=== PATIENT | male | born 1990 | race African-American/Black ===

== ENCOUNTER 2019-03-10 09:06 | Observation (INO) | payer MEDICAID ==
[~2019-03-10] VITALS: Ht 182.9 cm; Wt 81.0 kg
--- NOTE | 2019-03-10 09:16 | NUR ---
FINGERSTICK GLUCOSE IN TRIAGE READING HIGH.
[2019-03-10] MEDS ORDERED: ONDANSETRON 2MG/ML, 2ML IVPush ONE (10:00)
[2019-03-10] MEDS ORDERED: ONDANSETRON 2MG/ML, 2ML ONE (10:12)
[2019-03-10 10:14] LABS: BASOPHILS % (AUTO) 0 % (0-1); EOSINOPHILS # (AUTO) 0.05 x10^3/uL (0-0.4); EOSINOPHILS % (AUTO) 1 % (1-7); LYMPHOCYTES # (AUTO) 0.84 x10^3/uL (1-3.4); LYMPHOCYTES % (AUTO) 23 % (22-44); MD NO; MEAN CORPUSCULAR HEMOGLOBIN 32.1 pg (27.5-34.5); MEAN CORPUSCULAR HGB CONC 34.2 g/dL (33.2-36.2); MEAN CORPUSCULAR VOLUME 93.7 fL (81-97); MONOCYTES # (AUTO) 0.34 x10^3/uL (0.2-0.8); MONOCYTES % (AUTO) 10 % (2-9); NEUTROPHILS # (AUTO) 2.36 x10^3/uL (1.8-6.8); NEUTROPHILS % (AUTO) 66 % (42-75); PLATELET COUNT 267 x10^3/uL (130-400); RED BLOOD COUNT 4.68 x10^6/uL (4.38-5.82); RED CELL DISTRIBUTION WIDTH 12.5 % (9.4-14.8)
[2019-03-10 10:15] LABS: PH, VENOUS 7.345 pH (7.320-7.420)
[2019-03-10 10:18] LABS: MICROSCOPIC NOT IND
[2019-03-10 10:19] LABS: CULTURE INDICATED? NO
[2019-03-10 10:20] LABS: FIO2 ROOM AIR %
[2019-03-10 10:26] LABS: ALBUMIN 3.6 g/dL (3.4-5.0); ANION GAP 7 mmol/L (5-15); CALCIUM 8.7 mg/dL (8.5-10.1); CHLORIDE 96 mmol/L (98-107)
[2019-03-10 10:29] LABS: ALANINE AMINOTRANSFERASE 67 U/L (12-78); ALKALINE PHOSPHATASE 88 U/L (45-117); BILIRUBIN,TOTAL 0.5 mg/dL (0.2-1.0); CREATININE 1.33 mg/dL (0.7-1.3); TOTAL PROTEIN 7.4 g/dL (6.4-8.2)
[2019-03-10 10:50] LABS: ACETONE, SERUM Trace (10mg/dL) mg/dL (Negative)
[2019-03-10] MEDS ORDERED: INSU100C SQ-INSULIN (10:55)
[2019-03-10] MEDS ORDERED: INSU100V8 SQ (10:55)
[2019-03-10] MEDS ORDERED: SODIUM CHLORIDE 0.9% 1,000ML IVBOLUS ONE (11:00)
--- NOTE | 2019-03-10 11:56 | NUR ---
FLUIDS COMPLETE VSS ON SUPERVISOR BOTTLE MACHINES REPORT NAUSEA COMPLETELY RESOLVED
[2019-03-10] MEDS: INSULIN REGULAR 100 UNITS/ML, 3ML VIAL IVPush ONE ×2 (12:00→12:10)
[2019-03-10] MEDS ORDERED: INSULIN SINGLE DOSE, ER SQ-INSULIN ONE (12:05)
--- NOTE | 2019-03-10 12:10 | NUR ---
ER PROVIDER MADE AWARE OF FSBS-POTATO LOADER ASKED TO SWITCH REGULAR INSULIN 10 UNITS FROM IV PUSH TO SQ HOSPITALIST AT BEDSIDE (JALEN)
--- NOTE | 2019-03-10 12:16 | NUR ---
POST IVF FSBS 399 10 UNITS OF REGULAR INSULIN ADMINISTERED SQ PER PATIENT REQUEST PATIENT PROVIDED WITH 2 DRIVER, 1 STRING CHEESES, & 2 CUPS OF PEANUT BUTTER
[2019-03-10] MEDS ORDERED: DEXTROSE 4 GM TAB.CHEW PO PRN (12:30)
[2019-03-10] MEDS ORDERED: ACETAMINOPHEN 325 MG TABLET PO PRN (12:30)
[2019-03-10] MEDS: HEPARIN 5,000 UNITS/ML, 1ML SQ SCH ×2 (12:30→20:55)
[2019-03-10] MEDS ORDERED: ONDANSETRON 2MG/ML, 2ML IVPush PRN (12:30)
[2019-03-10] MEDS ORDERED: FAMOTIDINE 20 MG/2 ML IVPush PRN (12:30)
[2019-03-10] MEDS ORDERED: morphine SULFATE 10 MG/ML, 1ML IVPush PRN (12:30)
[2019-03-10] MEDS ORDERED: DOCUSATE 100 MG CAPSULE PO PRN (12:30)
[2019-03-10] MEDS ORDERED: GLUCAGON 1 MG IM PRN (12:30)
[2019-03-10] MEDS ORDERED: DEXTROSE 50%, 50ML SYRINGE IVPush PRN (12:30)
[2019-03-10] MEDS ORDERED: NICOTINE 7 MG/24 HR PATCH.TD24 TD SCH (12:30)
[2019-03-10] MEDS: INSULIN LISPRO 100 UNITS/ML, PEN SQ-INSULIN SCH ×3 (12:30→21:04)
[2019-03-10] MEDS ORDERED: ONDANSETRON ODT 4 MG PO PRN (12:30)
[2019-03-10] MEDS ORDERED: GABA300C10 PO (12:51)
[2019-03-10] MEDS ORDERED: BUPR-173 PO (12:51)
[2019-03-10] MEDS ORDERED: HALO5TAB5 PO (12:51)
[2019-03-10] MEDS ORDERED: BUSP5TAB2 PO (12:51)
[2019-03-10] MEDS ORDERED: ARIP10TA33 PO (12:51)
--- NOTE | 2019-03-10 12:51 | NUR ---
tolerated food/water w/ no increase in nausea Med recc completed-sharathificatpetty has not taken any lantus in 1 month, has just been using Humalog
[2019-03-10 13:02] LABS: HEMOGLOBIN A1C 13.3 % (4.2-6.3)
[2019-03-10] MEDS ORDERED: PHARMACY MAY ADJ FOR RENAL FX MC PRN (13:30)
[2019-03-10 14:00] VITALS: BP 134/80
[2019-03-10] MEDS: SODIUM CHLORIDE 0.9% 1,000 ML IV SCH ×2 (14:16→23:46)
[2019-03-10 14:26] VITALS: BP 134/80
[2019-03-10 15:07] LABS: ANION GAP 5 mmol/L (5-15); CHLORIDE 106 mmol/L (98-107); CREATININE 0.94 mg/dL (0.7-1.3)
[2019-03-10] MEDS ORDERED: INSULIN REGULAR 100 UNITS/ML, 3ML VIAL SQ-INSULIN ONE (16:00)
[2019-03-10] MEDS: GABAPENTIN 300 MG CAPSULE PO SCH (17:43)
[2019-03-10 19:01] VITALS: BP 117/71
[2019-03-10] MEDS ORDERED: ARIPIPRAZOLE 10 MG TABLET PO SCH (21:00)
[2019-03-10] MEDS: INSULIN GLARGINE 100 UNITS/ML, PEN SQ-INSULIN SCH (21:05)
[2019-03-10] MEDS: BUPROPION SR 100 MG TABLET PO SCH (21:05)
[2019-03-10] MEDS: BUSPIRONE 5 MG TABLET PO SCH (21:05)
[2019-03-10] MEDS: SODIUM CHLORIDE FLUSH 10ML SYR IVF SCH (21:06)
[2019-03-11 02:00] VITALS: BP 128/79
[2019-03-11] MEDS: HEPARIN 5,000 UNITS/ML, 1ML SQ SCH (04:34)
[2019-03-11 05:18] LABS: BASOPHILS # (AUTO) 0.02 x10^3/uL (0-0.1); BASOPHILS % (AUTO) 1 % (0-1); EOSINOPHILS # (AUTO) 0.11 x10^3/uL (0-0.4); EOSINOPHILS % (AUTO) 3 % (1-7); LYMPHOCYTES # (AUTO) 1.57 x10^3/uL (1-3.4); LYMPHOCYTES % (AUTO) 46 % (22-44); MD NO; MEAN CORPUSCULAR HEMOGLOBIN 32.3 pg (27.5-34.5); MEAN CORPUSCULAR HGB CONC 34.5 g/dL (33.2-36.2); MEAN CORPUSCULAR VOLUME 93.4 fL (81-97); MEAN PLATELET VOLUME 7.4 fL (7.4-10.4); MONOCYTES # (AUTO) 0.38 x10^3/uL (0.2-0.8); MONOCYTES % (AUTO) 11 % (2-9); NEUTROPHILS # (AUTO) 1.34 x10^3/uL (1.8-6.8); NEUTROPHILS % (AUTO) 39 % (42-75); PLATELET COUNT 274 x10^3/uL (130-400); RED BLOOD COUNT 4.22 x10^6/uL (4.38-5.82); RED CELL DISTRIBUTION WIDTH 12.8 % (9.4-14.8)
[2019-03-11 05:24] LABS: CHLORIDE 109 mmol/L (98-107)
[2019-03-11 05:33] LABS: ALANINE AMINOTRANSFERASE 51 U/L (12-78); ALKALINE PHOSPHATASE 63 U/L (45-117); ANION GAP 5 mmol/L (5-15); BILIRUBIN,TOTAL 0.5 mg/dL (0.2-1.0); CALCIUM 8.3 mg/dL (8.5-10.1); CREATININE 0.86 mg/dL (0.7-1.3)
[2019-03-11] MEDS: SODIUM CHLORIDE 0.9% 1,000 ML IV SCH (06:20)
[2019-03-11] MEDS: INSULIN LISPRO 100 UNITS/ML, PEN SQ-INSULIN SCH (07:00)
[2019-03-11 07:50] VITALS: BP 121/75
[2019-03-11] MEDS: GABAPENTIN 300 MG CAPSULE PO SCH (08:37)
[2019-03-11] MEDS: SODIUM CHLORIDE FLUSH 10ML SYR IVF SCH (08:37)
[2019-03-11] MEDS: BUSPIRONE 5 MG TABLET PO SCH (08:37)
[2019-03-11] MEDS: BUPROPION SR 100 MG TABLET PO SCH (08:37)
[2019-03-11] MEDS ORDERED: HALOPERIDOL 5 MG TABLET PO SCH (09:00)
[2019-03-11] MEDS: INSULIN GLARGINE 100 UNITS/ML, PEN SQ-INSULIN SCH (09:00)
== END 2019-03-11 09:00 | disposition left against medical advice (07) ==
LOC: ED 10:19 → EDIP 11:57 → INTOOBSV 11:57 → UNDOADMOB 11:57 → EDIP 12:18 → 3N 13:06 → UNDODISOB 03-11 09:00
PROVIDERS: ADMIT Internal Medicine; ATTEND Internal Medicine
DX: E10.40 Type 1 diabetes mellitus with diabetic neuropathy, unspecified (principal); E10.65 Type 1 diabetes mellitus with hyperglycemia; E86.0 Dehydration; E87.1 Hypo-osmolality and hyponatremia; E87.5 Hyperkalemia; F17.210 Nicotine dependence, cigarettes, uncomplicated; F31.9 Bipolar disorder, unspecified; F20.9 Schizophrenia, unspecified; Z79.4 Long term (current) use of insulin; Z91.14 Patient's other noncompliance with medication regimen
CPT/HCPCS: 36415; 80048; 80053; 81003; 82010; 82803; 82962; 83036; 83735; 83930; 84100; 85025; 93005; 96361; 96372; 96374; 99284; G0378; J1815; J2405; J7030; 99285

== ENCOUNTER 2019-07-07 16:52 | Inpatient (IN) | payer MEDICAID ==
[~2019-07-07] VITALS: Ht 182.9 cm; Wt 76.6 kg
[~2019-07-07 16:52] MED LIST: ARIP10TA33 PO; BUPR-173 PO; BUSP5TAB2 PO; GABA300C10 PO; HALO5TAB5 PO; INSU100C SQ-INSULIN; INSU100V8 SQ
--- NOTE | 2019-07-07 17:37 | NUR ---
PT TO ROOM 25 PER PEDIS WITH STRONG STEADY GAIT. PT HAS TYPE 1 DM, AND AT THE HOUSE HE WAS TRYING TO STAY AT, THEY CHECKED HIS SUGAR, AND THE METER WOULD NOT GIVE A NUMBER. PT HAS NO S/S HYPERGLYCEMIA, CAME TO ER FOR NUMBER. METER IN TRIAGE READ "HI", UNABLE TO GIVE A NUMBER. PT WAS RECENTLY DIAGNOSED WITH INFLUENZA A AND STILL HAS THE CONGESTION. LUNGS ARE CLEAR, DIMINISHED IN THE BASES WITH VERY FAINT EXP WHEEZES. PT IS WEARING A MASK. MD IN TO ASSESS PATIENT. WILL CONTINUE TO MONITOR PATIENT.
[2019-07-07 17:46] LABS: PH, VENOUS 7.358 pH (7.320-7.420)
[2019-07-07 17:51] LABS: BASOPHILS # (AUTO) 0.02 x10^3/uL (0-0.1); BASOPHILS % (AUTO) 0 % (0-1); EOSINOPHILS # (AUTO) 0.04 x10^3/uL (0-0.4); EOSINOPHILS % (AUTO) 1 % (1-7); LYMPHOCYTES # (AUTO) 1.91 x10^3/uL (1-3.4); LYMPHOCYTES % (AUTO) 26 % (22-44); MD NO; MEAN CORPUSCULAR HEMOGLOBIN 31.2 pg (27.5-34.5); MEAN CORPUSCULAR HGB CONC 34.5 g/dL (33.2-36.2); MEAN CORPUSCULAR VOLUME 90.6 fL (81-97); MEAN PLATELET VOLUME 8.1 fL (7.4-10.4); MONOCYTES # (AUTO) 0.59 x10^3/uL (0.2-0.8); MONOCYTES % (AUTO) 8 % (2-9); NEUTROPHILS # (AUTO) 4.73 x10^3/uL (1.8-6.8); NEUTROPHILS % (AUTO) 65 % (42-75); PLATELET COUNT 291 x10^3/uL (130-400); RED BLOOD COUNT 4.85 x10^6/uL (4.38-5.82)
[2019-07-07 18:00] LABS: ALANINE AMINOTRANSFERASE 32 U/L (12-78); ALBUMIN 3.5 g/dL (3.4-5.0); ANION GAP 7 mmol/L (5-15); CALCIUM 8.9 mg/dL (8.5-10.1); CHLORIDE 96 mmol/L (98-107); CREATININE 1.07 mg/dL (0.7-1.3)
[2019-07-07] MEDS ORDERED: SODIUM CHLORIDE 0.9% 1,000ML IVBOLUS ONE (18:00)
[2019-07-07 18:02] LABS: ALKALINE PHOSPHATASE 107 U/L (45-117); BILIRUBIN,TOTAL 0.5 mg/dL (0.2-1.0); TOTAL PROTEIN 7.9 g/dL (6.4-8.2)
[2019-07-07 18:20] LABS: ACETONE, SERUM Moderate(40mg/dL) (Negative)
[2019-07-07] MEDS ORDERED: INSULIN REGULAR 100 UNITS/ML, 3ML VIAL SQ-INSULIN ONE (18:30)
--- NOTE | 2019-07-07 18:30 | NUR ---
AWAITING ORDERS ON HIGH BLOOD SUGAR. MD AWARE. PT CONTINUES TO BE ASYMPTOMATIC, REQUESTING FOOD. WILL CONTINUE TO MONITOR.
[2019-07-07] MEDS ORDERED: ACETAMINOPHEN 325 MG TABLET PO PRN (19:00)
[2019-07-07] MEDS ORDERED: BISACODYL 10 MG SUPP PR PRN (19:00)
[2019-07-07] MEDS ORDERED: DOCUSATE 100 MG CAPSULE PO PRN (19:00)
[2019-07-07] MEDS ORDERED: GLUCAGON 1 MG IM PRN (19:00)
[2019-07-07] MEDS ORDERED: DEXTROSE 4 GM TAB.CHEW PO PRN (19:00)
[2019-07-07] MEDS ORDERED: ONDANSETRON 2MG/ML, 2ML IVPush PRN (19:00)
[2019-07-07] MEDS ORDERED: POLYETHYLENE GLYCOL 17 GM PACKET PO PRN (19:00)
[2019-07-07] MEDS ORDERED: PROMETHAZINE 25 MG/ML, 1ML IM PRN (19:00)
[2019-07-07] MEDS ORDERED: GUAIFENESIN/DM 200-20MG, 10ML UDC PO PRN (19:00)
[2019-07-07] MEDS ORDERED: DEXTROSE 50%, 50ML SYRINGE IVPush PRN (19:00)
[2019-07-07] MEDS ORDERED: INSULIN SINGLE DOSE, ER ONE (19:03)
--- NOTE | 2019-07-07 19:35 | NUR ---
REPORT TO RN ON 3RD FLOOR.
[2019-07-07] MEDS: ENOXAPARIN 40 MG/0.4 ML SQ SCH (20:30)
[2019-07-07] MEDS: SODIUM CHLORIDE FLUSH 10ML SYR IVF SCH (21:00)
[2019-07-07 21:28] VITALS: BP 129/79
[2019-07-07] MEDS: OSELTAMIVIR 75 MG CAPSULE PO SCH (22:42)
[2019-07-07] MEDS: QUETIAPINE 200 MG TABLET PO SCH (22:42)
[2019-07-07] MEDS: SODIUM CHLORIDE 0.9% 1,000 ML IV SCH (22:43)
[2019-07-07] MEDS: INSULIN GLARGINE 100 UNITS/ML, PEN SQ-INSULIN SCH (23:25)
[2019-07-07] MEDS: INSULIN LISPRO 100 UNITS/ML, PEN SQ-INSULIN SCH (23:26)
[2019-07-08 03:42] VITALS: BP 127/73
[2019-07-08] MEDS: SODIUM CHLORIDE 0.9% 1,000 ML IV SCH ×3 (03:53→16:47)
[2019-07-08 05:23] LABS: BASOPHILS # (AUTO) 0.02 x10^3/uL (0-0.1); BASOPHILS % (AUTO) 0 % (0-1); EOSINOPHILS # (AUTO) 0.06 x10^3/uL (0-0.4); EOSINOPHILS % (AUTO) 1 % (1-7); LYMPHOCYTES # (AUTO) 2.08 x10^3/uL (1-3.4); LYMPHOCYTES % (AUTO) 32 % (22-44); MD NO; MEAN CORPUSCULAR HEMOGLOBIN 31.6 pg (27.5-34.5); MEAN CORPUSCULAR HGB CONC 34.4 g/dL (33.2-36.2); MEAN CORPUSCULAR VOLUME 91.9 fL (81-97); MEAN PLATELET VOLUME 7.9 fL (7.4-10.4); MONOCYTES % (AUTO) 8 % (2-9); NEUTROPHILS # (AUTO) 3.91 x10^3/uL (1.8-6.8); NEUTROPHILS % (AUTO) 60 % (42-75); PLATELET COUNT 280 x10^3/uL (130-400); RED BLOOD COUNT 4.14 x10^6/uL (4.38-5.82); RED CELL DISTRIBUTION WIDTH 11.9 % (9.4-14.8)
[2019-07-08 05:27] LABS: CHLORIDE 109 mmol/L (98-107)
[2019-07-08 05:39] LABS: ALANINE AMINOTRANSFERASE 25 U/L (12-78); ALBUMIN 2.7 g/dL (3.4-5.0); ALKALINE PHOSPHATASE 75 U/L (45-117); ANION GAP 7 mmol/L (5-15); BILIRUBIN,TOTAL 0.4 mg/dL (0.2-1.0); CALCIUM 8.2 mg/dL (8.5-10.1); CREATININE 0.62 mg/dL (0.7-1.3); TOTAL PROTEIN 6.4 g/dL (6.4-8.2)
[2019-07-08] MEDS: INSULIN LISPRO 100 UNITS/ML, PEN SQ-INSULIN SCH ×4 (07:58→21:29)
[2019-07-08] MEDS: OSELTAMIVIR 75 MG CAPSULE PO SCH ×2 (07:58→21:30)
[2019-07-08] MEDS: INSULIN GLARGINE 100 UNITS/ML, PEN SQ-INSULIN SCH ×2 (07:59→21:29)
[2019-07-08] MEDS: SODIUM CHLORIDE FLUSH 10ML SYR IVF SCH ×2 (07:59→21:30)
[2019-07-08 08:00] VITALS: BP 125/72
[2019-07-08] MEDS ORDERED: POTASSIUM CHLORIDE 20 MEQ TAB.ER.PRT PO ONE (11:30)
[2019-07-08 14:00] VITALS: BP 126/71
[2019-07-08 20:44] VITALS: BP 178/80
[2019-07-08 21:17] VITALS: BP 155/94
[2019-07-08] MEDS: QUETIAPINE 200 MG TABLET PO SCH (21:30)
[2019-07-08] MEDS: ENOXAPARIN 40 MG/0.4 ML SQ SCH (21:30)
[2019-07-08] MEDS ORDERED: SODIUM CHLORIDE 0.9% 500 ML IV SCH (22:00)
[2019-07-08] MEDS ORDERED: SODIUM CHLORIDE 0.9% 500 ML IV ONE (22:00)
[2019-07-08 22:12] LABS: ALANINE AMINOTRANSFERASE 25 U/L (12-78); ALBUMIN 2.6 g/dL (3.4-5.0); ANION GAP 7 mmol/L (5-15); CALCIUM 8.1 mg/dL (8.5-10.1); CHLORIDE 106 mmol/L (98-107)
[2019-07-08 22:29] LABS: ALKALINE PHOSPHATASE 79 U/L (45-117); BILIRUBIN,TOTAL 0.3 mg/dL (0.2-1.0); TOTAL PROTEIN 6.4 g/dL (6.4-8.2)
[2019-07-09] MEDS: SODIUM CHLORIDE 0.9% 1,000 ML IV SCH ×2 (00:11→06:14)
[2019-07-09 01:20] VITALS: BP 121/77
[2019-07-09 07:22] VITALS: BP 132/84
[2019-07-09] MEDS: INSULIN LISPRO 100 UNITS/ML, PEN SQ-INSULIN SCH ×4 (07:38→20:30)
[2019-07-09] MEDS: INSULIN GLARGINE 100 UNITS/ML, PEN SQ-INSULIN SCH ×2 (07:38→20:31)
[2019-07-09] MEDS: OSELTAMIVIR 75 MG CAPSULE PO SCH ×2 (07:38→20:29)
[2019-07-09] MEDS: SODIUM CHLORIDE FLUSH 10ML SYR IVF SCH ×2 (07:39→20:30)
[2019-07-09 09:25] LABS: ANION GAP 7 mmol/L (5-15); CALCIUM 8.1 mg/dL (8.5-10.1); CHLORIDE 106 mmol/L (98-107); CREATININE 0.82 mg/dL (0.7-1.3)
[2019-07-09] MEDS ORDERED: MAGNESIUM SULFATE PMX 2GM/50ML 50 ML IV ONE (13:00)
[2019-07-09] MEDS ORDERED: INSULIN GLARGINE 100 UNITS/ML, PEN SQ-INSULIN ONE ×2 (13:00→17:00)
[2019-07-09 15:57] VITALS: BP 147/96
[2019-07-09] MEDS ORDERED: INSULIN LISPRO 100 UNITS/ML, PEN SQ-INSULIN ONE (17:00)
[2019-07-09 19:22] VITALS: BP 125/77
[2019-07-09] MEDS: QUETIAPINE 200 MG TABLET PO SCH (20:29)
[2019-07-09] MEDS: ENOXAPARIN 40 MG/0.4 ML SQ SCH (20:29)
[2019-07-10 00:42] VITALS: BP 107/73
[2019-07-10 05:03] LABS: CALCIUM 8.7 mg/dL (8.5-10.1); CHLORIDE 106 mmol/L (98-107)
[2019-07-10 05:07] LABS: ANION GAP 6 mmol/L (5-15); CREATININE 0.77 mg/dL (0.7-1.3)
[2019-07-10] MEDS: OSELTAMIVIR 75 MG CAPSULE PO SCH ×2 (07:38→21:24)
[2019-07-10] MEDS: INSULIN GLARGINE 100 UNITS/ML, PEN SQ-INSULIN SCH ×2 (07:39→22:03)
[2019-07-10] MEDS: INSULIN LISPRO 100 UNITS/ML, PEN SQ-INSULIN SCH ×3 (07:39→22:00)
[2019-07-10] MEDS: SODIUM CHLORIDE FLUSH 10ML SYR IVF SCH ×2 (07:40→21:00)
[2019-07-10 07:54] VITALS: BP 136/90
[2019-07-10 12:22] VITALS: BP 132/81
[2019-07-10] MEDS: ENOXAPARIN 40 MG/0.4 ML SQ SCH (20:30)
[2019-07-10 21:03] VITALS: BP 137/81
[2019-07-10] MEDS ORDERED: CYCL-259 PO (21:23)
[2019-07-10] MEDS: QUETIAPINE 200 MG TABLET PO SCH (21:24)
[2019-07-11 00:48] VITALS: BP 109/71
[2019-07-11] MEDS: OSELTAMIVIR 75 MG CAPSULE PO SCH (07:40)
[2019-07-11] MEDS: INSULIN LISPRO 100 UNITS/ML, PEN SQ-INSULIN SCH ×3 (07:40→16:10)
[2019-07-11] MEDS: INSULIN GLARGINE 100 UNITS/ML, PEN SQ-INSULIN SCH (07:40)
[2019-07-11] MEDS: SODIUM CHLORIDE FLUSH 10ML SYR IVF SCH (07:43)
[2019-07-11 08:00] VITALS: BP 110/71
[2019-07-11 14:18] VITALS: BP 135/86
[2019-07-11] MEDS ORDERED: GABA300C10 PO (15:51)
[2019-07-11] MEDS ORDERED: INSU100V8 SQ (15:51)
[2019-07-11] MEDS ORDERED: QUET200T PO (15:51)
[2019-07-11] MEDS ORDERED: OSEL75CA14 PO (15:51)
[2019-07-11] MEDS ORDERED: INSU100V37 SQ (15:51)
== END 2019-07-11 18:04 | disposition home or self-care (01) | DRG 638 ==
LOC: ED 18:10 → INTOOBSV 18:11 → EDIP 18:11 → ED 18:35 → 3N 19:49 → OBSVTOIN 07-10 08:48
PROVIDERS: ADMIT Internal Medicine; ATTEND Internal Medicine
DX: E13.00 Other specified diabetes mellitus with hyperosmolarity without nonketotic hyperglycemic-hyperosmolar coma (NKHHC) (principal); F20.0 Paranoid schizophrenia; E87.1 Hypo-osmolality and hyponatremia; J10.1 Influenza due to other identified influenza virus with other respiratory manifestations; F11.10 Opioid abuse, uncomplicated; F17.210 Nicotine dependence, cigarettes, uncomplicated; F31.9 Bipolar disorder, unspecified; Z59.0 Homelessness; Z79.4 Long term (current) use of insulin; Z83.3 Family history of diabetes mellitus; Z91.19 Patient's noncompliance with other medical treatment and regimen
CPT/HCPCS: 36415; 71045; 80048; 80053; 82010; 82803; 82947; 82962; 83036; 83735; 83930; 84100; 85025; 99285; G0378; J1815; J3475; J7030; J7040

== ENCOUNTER 2019-09-12 10:48 | Inpatient (IN) | payer MEDICAID ==
[~2019-09-12] VITALS: Ht 180.3 cm; Wt 75.0 kg
[~2019-09-12 10:48] MED LIST changes: +CYCL-259 PO; +INSU100V37 SQ; +OSEL75CA14 PO; +QUET200T PO
[2019-09-12] MEDS ORDERED: SODIUM CHLORIDE 0.9% 1,000ML IVBOLUS ONE (11:00)
[2019-09-12] MEDS ORDERED: ONDANSETRON 2MG/ML, 2ML IVPush ONE (11:00)
--- NOTE | 2019-09-12 11:06 | NUR ---
FLUIDS BEING ADMINSITERED PER EMAR. PT REQUESTING WARM BLANKETS. RN TO PROVIDE TO PT.
[2019-09-12 11:27] LABS: PH, VENOUS 7.279 pH (7.320-7.420)
[2019-09-12 11:28] LABS: BASOPHILS # (AUTO) 0.01 x10^3/uL (0-0.1); BASOPHILS % (AUTO) 0 % (0-1); EOSINOPHILS # (AUTO) 0.05 x10^3/uL (0-0.4); EOSINOPHILS % (AUTO) 1 % (1-7); LYMPHOCYTES # (AUTO) 0.92 x10^3/uL (1-3.4); LYMPHOCYTES % (AUTO) 23 % (22-44); MD NO; MEAN CORPUSCULAR HEMOGLOBIN 31.5 pg (27.5-34.5); MEAN CORPUSCULAR HGB CONC 34.6 g/dL (33.2-36.2); MEAN PLATELET VOLUME 8.4 fL (7.4-10.4); MONOCYTES # (AUTO) 0.33 x10^3/uL (0.2-0.8); MONOCYTES % (AUTO) 8 % (2-9); NEUTROPHILS # (AUTO) 2.75 x10^3/uL (1.8-6.8); NEUTROPHILS % (AUTO) 68 % (42-75); PLATELET COUNT 227 x10^3/uL (130-400); RED BLOOD COUNT 5.21 x10^6/uL (4.38-5.82); RED CELL DISTRIBUTION WIDTH 12.2 % (9.4-14.8)
[2019-09-12 11:41] LABS: ALBUMIN 3.1 g/dL (3.4-5.0); ANION GAP 10 mmol/L (5-15); CHLORIDE 100 mmol/L (98-107)
--- NOTE | 2019-09-12 11:50 | NUR ---
PT ASLEEP ON GURNEY. RR EVEN AND UNLABORED. AWAITING LAB RESULTS.
[2019-09-12 11:53] LABS: ALANINE AMINOTRANSFERASE 47 U/L (12-78); ALKALINE PHOSPHATASE 88 U/L (45-117); BILIRUBIN,TOTAL 0.6 mg/dL (0.2-1.0); CALCIUM 8.1 mg/dL (8.5-10.1); CREATININE 1.13 mg/dL (0.7-1.3); TOTAL PROTEIN 6.8 g/dL (6.4-8.2)
--- NOTE | 2019-09-12 11:57 | NUR ---
RN RECEIVED CRITICAL LAB VALUE FROM LAB OF BGL 528. RN TO REPORT TO ERMD.
--- NOTE | 2019-09-12 12:04 | NUR ---
RN REPORTED BGL TO ERMD.
[2019-09-12 12:28] LABS: ACETONE, SERUM Large (80mg/dL) (Negative)
[2019-09-12] MEDS ORDERED: SODIUM CHLORIDE 0.9%, 500ML IVBOLUS ONE (12:30)
--- NOTE | 2019-09-12 12:30 | NUR ---
SECOND IV BOLUS BEING ADMINISTERED. OF PT CALLED FOR UPDATE. OKAY TO UPDATE PER PT. PT REQUESTING WATER AND CRACKERS. RN TO ASK ERMD.
[2019-09-12] MEDS ORDERED: INSULIN LISPRO SINGLE DOSE, ER SQ-INSULIN ONE (12:34)
--- NOTE | 2019-09-12 12:36 | NUR ---
OKAY BY VASILIY TO GIVE PT WATER AND CRACKERS. UPDATED. PT TBAD.
[2019-09-12 12:38] VITALS: BP 139/67
--- NOTE | 2019-09-12 12:57 | NUR ---
REPORT TO MIN OCHOA. PT TO BE TRANSPORTED TO FLOOR VIA [facility].
[2019-09-12] MEDS ORDERED: INSULIN REGULAR 100 UNITS/ML, 3ML VIAL SQ-INSULIN ONE (13:00)
--- NOTE | 2019-09-12 13:06 | NUR ---
PT BEING TRANSPORTED TO FLOOR VIA GURNEY BY [email or web address].
[2019-09-12] MEDS ORDERED: ACETAMINOPHEN 325 MG TABLET PO PRN (14:00)
[2019-09-12] MEDS ORDERED: hydrALAzine 20 MG/ML, 1ML IVPush PRN (14:00)
[2019-09-12] MEDS ORDERED: ONDANSETRON 2MG/ML, 2ML IVPush PRN (14:00)
[2019-09-12] MEDS ORDERED: BISACODYL 10 MG SUPP PR PRN (14:00)
[2019-09-12] MEDS ORDERED: NICOTINE 21 MG/24 HR PATCH.TD24 TD SCH (14:00)
[2019-09-12] MEDS ORDERED: POLYETHYLENE GLYCOL 17 GM PACKET PO PRN (14:00)
[2019-09-12] MEDS ORDERED: NS + 20MEQ KCL 1,000 ML IV SCH (14:00)
[2019-09-12] MEDS ORDERED: ZOLPIDEM 5MG TABLET PO PRN (14:00)
[2019-09-12] MEDS ORDERED: HYDROcodone/APAP 5/325 TABLET PO PRN (14:00)
[2019-09-12] MEDS ORDERED: HEPARIN 5,000 UNITS/ML, 1ML SQ SCH (14:00)
[2019-09-12] MEDS ORDERED: LIDODERM 5% PATCH TD PRN (14:00)
[2019-09-12 14:38] LABS: FREE T4 (FREE THYROXINE) 1.2 ng/dL (0.76-1.46)
[2019-09-12] MEDS ORDERED: INSULIN LISPRO 100 UNITS/ML, PEN SQ-INSULIN SCH (16:00)
[2019-09-12] MEDS ORDERED: FAMOTIDINE 20 MG TABLET PO SCH (21:00)
[2019-09-12] MEDS ORDERED: INSULIN GLARGINE 100 UNITS/ML, PEN SQ-INSULIN SCH (21:00)
[2019-09-12] MEDS ORDERED: QUETIAPINE 100MG TABLET PO SCH (21:00)
== END 2019-09-12 18:00 | disposition left against medical advice (07) | DRG 639 ==
LOC: ED 11:28 → EDIP 12:36 → 3N 13:07
PROVIDERS: ADMIT Hospitalist; ATTEND Hospitalist
DX: E10.10 Type 1 diabetes mellitus with ketoacidosis without coma (principal); Z53.29 Procedure and treatment not carried out because of patient's decision for other reasons; F20.9 Schizophrenia, unspecified; Z59.0 Homelessness; Z79.4 Long term (current) use of insulin; Z87.891 Personal history of nicotine dependence; Z91.14 Patient's other noncompliance with medication regimen; Z91.19 Patient's noncompliance with other medical treatment and regimen
CPT/HCPCS: 36415; 71045; 76700; 80053; 82010; 82803; 82962; 83036; 83690; 84439; 84443; 84478; 85025; 93005; 96361; 96374; 99285; G0378; J3480; J1815; J7030; J7040

== ENCOUNTER 2020-01-05 21:31 | Observation (INO) | payer MEDICAID ==
[~2020-01-05] VITALS: Ht 182.9 cm; Wt 76.2 kg
[2020-01-05] MEDS ORDERED: SODIUM CHLORIDE 0.9% 1,000 ML IV ONE (22:45)
[2020-01-05] MEDS ORDERED: SODIUM CHLORIDE FLUSH 10ML SYR IVF ONE (23:00)
[2020-01-05] MEDS ORDERED: SODIUM CHLORIDE 0.9% 1,000ML IVBOLUS ONE (23:00)
[2020-01-05 23:11] LABS: BASOPHILS # (AUTO) 0.02 x10^3/uL (0-0.1); BASOPHILS % (AUTO) 1 % (0-1); EOSINOPHILS # (AUTO) 0.16 x10^3/uL (0-0.4); EOSINOPHILS % (AUTO) 5 % (1-7); LYMPHOCYTES # (AUTO) 0.96 x10^3/uL (1-3.4); LYMPHOCYTES % (AUTO) 32 % (22-44); MD NO; MEAN CORPUSCULAR HEMOGLOBIN 31.8 pg (27.5-34.5); MEAN CORPUSCULAR HGB CONC 34.2 g/dL (33.2-36.2); MEAN CORPUSCULAR VOLUME 92.9 fL (81-97); MEAN PLATELET VOLUME 8.9 fL (7.4-10.4); MONOCYTES # (AUTO) 0.38 x10^3/uL (0.2-0.8); MONOCYTES % (AUTO) 13 % (2-9); NEUTROPHILS # (AUTO) 1.47 x10^3/uL (1.8-6.8); NEUTROPHILS % (AUTO) 49 % (42-75); PH, VENOUS 7.339 pH (7.320-7.420); PLATELET COUNT 251 x10^3/uL (130-400); RED BLOOD COUNT 4.28 x10^6/uL (4.38-5.82); RED CELL DISTRIBUTION WIDTH 12.3 % (9.4-14.8)
[2020-01-05 23:25] LABS: ALANINE AMINOTRANSFERASE 40 U/L (12-78); ALBUMIN 2.2 g/dL (3.4-5.0); ANION GAP 8 mmol/L (5-15); CHLORIDE 111 mmol/L (98-107); CREATININE 0.75 mg/dL (0.7-1.3)
--- NOTE | 2020-01-05 23:35 | NUR ---
Resting comfortably on stretcher. Warm blanket provided. No complaints at this time. No s/sx acute distress
[2020-01-05 23:43] LABS: ALKALINE PHOSPHATASE 76 U/L (45-117); BILIRUBIN,TOTAL 0.3 mg/dL (0.2-1.0); TOTAL PROTEIN 4.4 g/dL (6.4-8.2)
[2020-01-05 23:44] LABS: CALCIUM 5.7 mg/dL (8.5-10.1)
[2020-01-05 23:50] LABS: ACETONE, SERUM Small (20mg/dL) (Negative)
[2020-01-06] MEDS ORDERED: CALCIUM GLUCONATE 4.6 MEQ in SODIUM CHLORIDE 0.9% 90 ML IV ONE
[2020-01-06] MEDS ORDERED: POTASSIUM CHLORIDE 20 MEQ TAB.ER.PRT PO ONE
--- NOTE | 2020-01-06 00:15 | NUR ---
Pt resting comfortably on stretcher. No s/sx acute distress. Even chest rise/fall noted
[2020-01-06] MEDS ORDERED: MAGNESIUM SULFATE/D5W 100 ML IV ONE (00:30)
[2020-01-06] MEDS ORDERED: INSULIN REGULAR 100 UNITS/ML, 3ML VIAL SQ-INSULIN ONE (00:30)
[2020-01-06] MEDS ORDERED: SODIUM CHLORIDE FLUSH 10ML SYR IVF PRN (01:00)
[2020-01-06] MEDS ORDERED: POTASSIUM CHLORIDE 20 MEQ TAB.ER.PRT ONE (01:01)
[2020-01-06] MEDS ORDERED: INSULIN SINGLE DOSE, ER ONE (01:02)
--- NOTE | 2020-01-06 01:07 | NUR ---
Hospitalist at bedside
--- NOTE | 2020-01-06 01:23 | NUR ---
Report given to Sander COPELAND
[2020-01-06] MEDS ORDERED: NICOTINE 14MG/24 HR PATCH.TD24 TD ONE (01:30)
[2020-01-06] MEDS ORDERED: ONDANSETRON 2MG/ML, 2ML IVPush PRN (01:30)
[2020-01-06] MEDS ORDERED: ACETAMINOPHEN 325 MG TABLET PO PRN (01:30)
[2020-01-06] MEDS ORDERED: hydrALAzine 20 MG/ML, 1ML IVPush PRN (01:30)
[2020-01-06] MEDS ORDERED: POTASSIUM CHLORIDE 40 MEQ in SODIUM CHLORIDE 0.9% 500 ML IV ONE (01:30)
[2020-01-06 02:10] VITALS: BP 136/84
[2020-01-06 02:30] VITALS: BP 136/78
[2020-01-06] MEDS: INSULIN GLARGINE 100 UNITS/ML, PEN SQ-INSULIN SCH ×2 (02:43→17:00)
[2020-01-06] MEDS: LACTATED RINGERS 1,000 ML IV SCH ×2 (03:32→08:10)
[2020-01-06] MEDS: INSULIN LISPRO 100 UNITS/ML, PEN SQ-INSULIN SCH ×4 (07:00→20:30)
[2020-01-06 08:05] VITALS: BP 124/78
[2020-01-06 08:40] LABS: MICROSCOPIC NOT IND
[2020-01-06 08:59] LABS: AMPHETAMINE SCREEN, URINE Positive (Negative); BARBITURATE SCREEN, URINE Negative (Negative); BENZODIAZEPINE SCREEN, URINE Negative (Negative); CANNABINOID SCREEN, URINE Negative (Negative); COCAINE SCREEN, URINE Negative (Negative); METHADONE SCREEN, URINE Negative (Negative); OPIATE SCREEN, URINE Negative (Negative)
[2020-01-06 09:21] LABS: ANION GAP 5 mmol/L (5-15); CHLORIDE 110 mmol/L (98-107)
[2020-01-06 09:22] LABS: CREATININE 0.65 mg/dL (0.7-1.3)
[2020-01-06 14:23] VITALS: BP 142/94
[2020-01-06 20:20] VITALS: BP 141/78
[2020-01-07 04:19] VITALS: BP 126/77
[2020-01-07] MEDS: INSULIN GLARGINE 100 UNITS/ML, PEN SQ-INSULIN SCH ×2 (04:29→17:39)
[2020-01-07 06:35] VITALS: BP 133/87
[2020-01-07] MEDS: INSULIN LISPRO 100 UNITS/ML, PEN SQ-INSULIN SCH ×3 (07:00→17:38)
[2020-01-07] MEDS ORDERED: INSU100V37 SQ (12:29)
[2020-01-07] MEDS ORDERED: INSU100V8 SQ (12:29)
[2020-01-07] MEDS ORDERED: INSU100C SQ-INSULIN (12:29)
[2020-01-07 13:31] VITALS: BP 124/77
== END 2020-01-07 19:45 | disposition home or self-care (01) ==
LOC: ED 23:06 → INTOOBSV 01-06 00:39 → EDIP 01-06 00:39 → 5SO 01-06 01:31
PROVIDERS: ADMIT Family Medicine; ATTEND Family Medicine
DX: E10.65 Type 1 diabetes mellitus with hyperglycemia (principal); E87.6 Hypokalemia; E83.51 Hypocalcemia; E83.42 Hypomagnesemia; F17.210 Nicotine dependence, cigarettes, uncomplicated; F20.0 Paranoid schizophrenia; F31.9 Bipolar disorder, unspecified; Z59.0 Homelessness; Z79.4 Long term (current) use of insulin; Z91.14 Patient's other noncompliance with medication regimen; Z91.19 Patient's noncompliance with other medical treatment and regimen; Z79.84 Long term (current) use of oral hypoglycemic drugs
CPT/HCPCS: 36415; 80048; 80053; 80307; 81003; 82010; 82330; 82803; 82947; 82962; 83036; 83735; 85025; 96361; 96365; 96366; 96367; 99284; G0378; J0610; J1815; J3480; J7030; J7040; J7120

== ENCOUNTER 2020-03-19 18:12 | Inpatient (IN) | payer MEDICAID ==
[~2020-03-19] VITALS: Ht 182.9 cm; Wt 73.0 kg
[2020-03-19] MEDS ORDERED: SODIUM CHLORIDE 0.9% 1,000ML IVBOLUS ONE ×2 (18:30→22:30)
--- NOTE | 2020-03-19 18:45 | NUR ---
BIBA for reported SZR like activity at home. Pt found to have glucose >650 (>600 on hospital glucometer). Pt states abdominal pain with nausea. Type 1 diabetic. Arrives with PIV, fluids initiated on arrival.
[2020-03-19 18:47] LABS: PH, VENOUS 7.339 pH (7.320-7.420)
[2020-03-19 18:49] LABS: MICROSCOPIC NOT IND
[2020-03-19 18:56] LABS: BASOPHILS % (AUTO) 1 % (0-1); EOSINOPHILS % (AUTO) 1 % (1-7); LYMPHOCYTES % (AUTO) 21 % (22-44); MEAN CORPUSCULAR HEMOGLOBIN 31.5 pg (27.5-34.5); MEAN CORPUSCULAR HGB CONC 33.1 g/dL (33.2-36.2); MONOCYTES % (AUTO) 8 % (2-9); NEUTROPHILS % (AUTO) 70 % (42-75); PLATELET COUNT 315 x10^3/uL (130-400); RED BLOOD COUNT 4.21 x10^6/uL (4.38-5.82); RED CELL DISTRIBUTION WIDTH 12.6 % (9.4-14.8)
[2020-03-19 18:59] LABS: ALANINE AMINOTRANSFERASE 46 U/L (12-78); ALBUMIN 3.1 g/dL (3.4-5.0); ANION GAP 9 mmol/L (5-15); CALCIUM 8.2 mg/dL (8.5-10.1); CHLORIDE 90 mmol/L (98-107); CREATININE 1.48 mg/dL (0.7-1.3)
[2020-03-19 19:01] LABS: ALKALINE PHOSPHATASE 114 U/L (45-117); BILIRUBIN,TOTAL 0.3 mg/dL (0.2-1.0); TOTAL PROTEIN 6.8 g/dL (6.4-8.2)
--- NOTE | 2020-03-19 19:10 | NUR ---
Handoff report to Katiana COPELAND
[2020-03-19 19:13] LABS: ACETONE, SERUM Moderate(40mg/dL) (Negative)
[2020-03-19 19:39] LABS: MD NO
[2020-03-19] MEDS ORDERED: INSULIN REGULAR 100 UNITS/ML, 3ML VIAL SQ-INSULIN ONE (20:00)
[2020-03-19] MEDS ORDERED: OMNIPAQUE 350 MG/ML, 100ML BOTTLE ONE (20:32)
[2020-03-19] MEDS ORDERED: INSULIN SINGLE DOSE, ER ONE (20:36)
[2020-03-19] MEDS ORDERED: SODIUM CHLORIDE FLUSH 10ML SYR IVF PRN (21:30)
--- NOTE | 2020-03-19 21:41 | NUR ---
REPEAT BG GREATER THAN 600 ON GLUCOMETER POST INSULIN AND FLUIDS.
--- NOTE | 2020-03-19 21:44 | NUR ---
INFORMED DR LAU OF REPEAT BG POST INSULIN AND IVF. PT WAITING FOR HOSPITALIST FOR ICU ADMISSION. VSS.
[2020-03-19] MEDS ORDERED: DOCUSATE 100 MG CAPSULE PO PRN (22:30)
[2020-03-19] MEDS ORDERED: LABETALOL 5MG/ML, 20ML IVPush PRN (22:30)
[2020-03-19] MEDS ORDERED: ONDANSETRON 2MG/ML, 2ML IVPush PRN (22:30)
[2020-03-19] MEDS ORDERED: ACETAMINOPHEN 325 MG TABLET PO PRN (22:30)
[2020-03-19] MEDS ORDERED: LORazepam 2 MG/ML, 1ML IV PRN (22:30)
[2020-03-19] MEDS: HEPARIN 5,000 UNITS/ML, 1ML SQ SCH (22:30)
[2020-03-19] MEDS ORDERED: THIAMINE 100 MG in SODIUM CHLORIDE 0.9% 50 ML IV ONE (22:30)
[2020-03-19] MEDS: SODIUM CHLORIDE 0.9% 1,000 ML IV SCH (22:30)
--- NOTE | 2020-03-19 22:41 | NUR ---
REQUESTED MEDS ORDERED BY HOSPITALIST FROM PHARMACY.
--- NOTE | 2020-03-19 23:23 | NUR ---
waiting for insulin/meds from pharmacy. pt sleeping, rr equal and unlabored. wakes up with verbal oriented. vss. voids per urinal, emptied large clear yellow urine. 1000ml urine output.
--- NOTE | 2020-03-19 23:29 | NUR ---
# Addendum: 03/19/20 at 2329 by [email or web address] 3rd Rodríguez meraz.
[2020-03-19] MEDS: BUSPIRONE 5 MG TABLET PO SCH (23:33)
[2020-03-19] MEDS: QUETIAPINE 200 MG TABLET PO SCH (23:34)
--- NOTE | 2020-03-19 23:51 | NUR ---
BG NOW 238 POST IVF. WAITING FOR INSULIN PEN FROM PHARM FOR SLIDING SCALE INSULIN. VSS.
[2020-03-20] MEDS: INSULIN LISPRO 100 UNITS/ML, PEN SQ-INSULIN SCH ×4 (00:13→18:00)
--- NOTE | 2020-03-20 01:42 | NUR ---
ALL IVF BOLUS COMPLETE TOTAL 3L, PT A/OX4, VSS. EATING SALTINES/DIET 7UP, BROTH. NAD, WILL CONTINUE TO MONITOR.
[2020-03-20 05:21] LABS: BASOPHILS % (AUTO) 1 % (0-1); EOSINOPHILS % (AUTO) 3 % (1-7); LYMPHOCYTES % (AUTO) 33 % (22-44); MEAN CORPUSCULAR HEMOGLOBIN 31.5 pg (27.5-34.5); MEAN CORPUSCULAR HGB CONC 35.3 g/dL (33.2-36.2); MEAN PLATELET VOLUME 7.5 fL (7.4-10.4); MONOCYTES % (AUTO) 9 % (2-9); NEUTROPHILS % (AUTO) 54 % (42-75); PLATELET COUNT 298 x10^3/uL (130-400); RED BLOOD COUNT 4.09 x10^6/uL (4.38-5.82); RED CELL DISTRIBUTION WIDTH 12.6 % (9.4-14.8)
[2020-03-20 05:26] LABS: MD NO
[2020-03-20 05:29] LABS: ANION GAP 4 mmol/L (5-15); CHLORIDE 106 mmol/L (98-107)
--- NOTE | 2020-03-20 06:14 | NUR ---
PT SLEEPING, WAKES UP W VERBAL. ALERT AND ORIENTED, SLIGHTLY SLEEPY. NO SEIZURE ACTIVITY OF ANY KIND WITNESSED ALL NIGHT. VSS. BG 435, ORDERED STAT CHEM PANEL.
[2020-03-20] MEDS: HEPARIN 5,000 UNITS/ML, 1ML SQ SCH ×3 (06:30→22:30)
--- NOTE | 2020-03-20 07:09 | NUR ---
REPORT TO MIN CAMACHO
[2020-03-20] MEDS: SODIUM CHLORIDE 0.9% 1,000 ML IV SCH (08:30)
[2020-03-20] MEDS: NICOTINE 14MG/24 HR PATCH.TD24 TD SCH (09:00)
--- NOTE | 2020-03-20 09:00 | NUR ---
REPORT RECEIVED FROM MIN CAMACHO AT BEDSIDE, THIS RN ASSUMING CARE.
[2020-03-20] MEDS: INSULIN GLARGINE 100 UNITS/ML, PEN SQ-INSULIN SCH ×2 (09:19→20:34)
[2020-03-20] MEDS ORDERED: GABAPENTIN 300 MG CAPSULE ONE ×3 (09:21→18:09)
[2020-03-20] MEDS: GABAPENTIN 300 MG CAPSULE PO SCH ×3 (09:24→18:10)
--- NOTE | 2020-03-20 09:30 | NUR ---
MD BRAY AT BEDSIDE, SPEAKING WITH PT. PT REPORTING CONSTIPATION X 2 WEEKS WITH MILD, DIFFUSE ABD PAIN. MD TO ENTER ORDERS FOR BOWEL REGIMEN. PT NOTIFIED MD HE IS VERY HUNGRY, HAS ALREADY CONSUMED ONE BREAKFAST TRAY. PER PREVIOUS RN, PT HAS HAD 2000ML URINE OUTPUT SO FAR TODAY. NOTIFIED. MD INSTRUCTED RN TO DC IVF. NS INFUSION DISCONTINUED. 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 PT HAS NO COMPLAINT AT THIS TIME. MEDICATED PER EMAR WITH AM LANTUS, REFUSING HEPARIN AND NICOTINE PATCH.
--- NOTE | 2020-03-20 09:41 | NUR ---
LAB ([facility]) CALLED TO INQUIRE IF URINE DRUG CAN BE RUN OFF OF SAMPLE IN LAB. TECH STATES SHE WILL ATTEMPT.
[2020-03-20 10:21] LABS: BARBITURATE SCREEN, URINE Negative (Negative); BENZODIAZEPINE SCREEN, URINE Negative (Negative); CANNABINOID SCREEN, URINE Negative (Negative); COCAINE SCREEN, URINE Negative (Negative); OPIATE SCREEN, URINE Negative (Negative)
[2020-03-20 10:22] LABS: AMPHETAMINE SCREEN, URINE Negative (Negative); METHADONE SCREEN, URINE Negative (Negative)
--- NOTE | 2020-03-20 11:00 | NUR ---
late entry for 1100: pt resting on hospital bed, a&o, resps even and unlabored. neuro checks in place with vital signs. pt has 5/5 strength to all extremities, no drift, bilateral grasp equal. pupils equal, round and reactive. no seizure activity noted this am. nsr on blind eyeletter with no ectopy noted. call light in reach.
--- NOTE | 2020-03-20 12:00 | NUR ---
late entry for 1200: pt resting on hospital bed, a&o, resps even and unlabored. nsr on satellite project site monitor. nadn at this time.
--- NOTE | 2020-03-20 13:07 | NUR ---
FSBS 346 TAKEN AT THIS TIME. LUNCH TRAY PROVIDED TO PT.
--- NOTE | 2020-03-20 13:37 | NUR ---
PT GIVEN MEAL TRAY, MEDICATED FOR LUNCH TIME INSULIN AND NEURONTIN BY TASK MIN MCCONNELL. PT A&O, RESPS EVEN AND UNLABORED, EATING LUNCH WITHOUT DIFFICULTY AT THIS TIME. 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 PT HAS NO COMPLAINT AT THIS TIME. APPROX 1000ML CLEAR YELLOW URINE VOIDED SINCE 0900 TODAY.
[2020-03-20] MEDS ORDERED: DOCUSATE 100 MG CAPSULE ONE (14:07)
--- NOTE | 2020-03-20 15:18 | NUR ---
report given at bedside to RNs Bettina and Jami who are assuming care. pt is a&ox4, resps even and unlabored, nsr on equipment monitor phototypesetting with no ectopy. all monitors in place. pt previously refused enema ordered by MD Tamayo, now accepting with education. enema administered, pt tolerated well. bedside commode at bedside. call light in reach.
--- NOTE | 2020-03-20 15:40 | NUR ---
PATIENT HAD BOWEL MOVEMENT AFTER FLEETS ENEMA, THAT WAS ADMINISTERED BY MIN MALLOY.
--- NOTE | 2020-03-20 16:53 | NUR ---
PT RESTING IN GURNEY WITH EYES CLOSED.
--- NOTE | 2020-03-20 18:07 | NUR ---
BS - 79. PT PROVIDED SNACK, RESTING IN [facility], NO COMPLAINTS AT THIS TIME.
--- NOTE | 2020-03-20 19:21 | NUR ---
MEAL TRAY PROVIDED, PT REPORTS NO OTHER NEEDS AT THIS TIME.
[2020-03-20] MEDS ORDERED: ARIPIPRAZOLE 10 MG TABLET ONE (20:28)
--- NOTE | 2020-03-20 20:30 | NUR ---
PT RESTING IN [facility], NO COMPLAINTS AT THIS TIME.
[2020-03-20] MEDS: ARIPIPRAZOLE 10 MG TABLET PO SCH (20:34)
[2020-03-20] MEDS: BUSPIRONE 5 MG TABLET PO SCH (20:37)
--- NOTE | 2020-03-20 21:00 | NUR ---
PT GIVEN LANTUS INSULIN, VERIFIED WITH CAN Lowe RN. PT RESTING IN [facility], NO OTHER COMPLAINTS.
--- NOTE | 2020-03-20 22:05 | NUR ---
PT RESTING IN [facility], NO COMPLAINTS AT THIS TIME.
--- NOTE | 2020-03-20 22:40 | NUR ---
BREAK RN: REPORT GIVEN TO MIN BLAS. PLAN OF CARE DISCUSSED
[2020-03-20 23:14] VITALS: BP 109/73
[2020-03-21] MEDS: INSULIN LISPRO 100 UNITS/ML, PEN SQ-INSULIN SCH ×4 (00:27→17:19)
[2020-03-21 01:04] VITALS: BP 115/73
[2020-03-21 05:34] LABS: BASOPHILS % (AUTO) 1 % (0-1); EOSINOPHILS % (AUTO) 3 % (1-7); LYMPHOCYTES % (AUTO) 34 % (22-44); MEAN CORPUSCULAR HEMOGLOBIN 31.8 pg (27.5-34.5); MEAN CORPUSCULAR HGB CONC 34.8 g/dL (33.2-36.2); MEAN PLATELET VOLUME 7.4 fL (7.4-10.4); MONOCYTES % (AUTO) 8 % (2-9); NEUTROPHILS % (AUTO) 56 % (42-75); PLATELET COUNT 326 x10^3/uL (130-400); RED BLOOD COUNT 4.33 x10^6/uL (4.38-5.82)
[2020-03-21 05:39] LABS: ANION GAP 5 mmol/L (5-15); CALCIUM 8.6 mg/dL (8.5-10.1); CHLORIDE 111 mmol/L (98-107); CREATININE 0.81 mg/dL (0.7-1.3)
[2020-03-21 05:45] LABS: MD NO
[2020-03-21] MEDS: HEPARIN 5,000 UNITS/ML, 1ML SQ SCH ×5 (05:59→21:56)
[2020-03-21 06:25] VITALS: BP 116/74
[2020-03-21] MEDS: NICOTINE 14MG/24 HR PATCH.TD24 TD SCH (08:07)
[2020-03-21] MEDS: GABAPENTIN 300 MG CAPSULE PO SCH ×3 (08:07→16:55)
[2020-03-21] MEDS: BUSPIRONE 5 MG TABLET PO SCH ×2 (08:07→19:54)
[2020-03-21] MEDS: INSULIN GLARGINE 100 UNITS/ML, PEN SQ-INSULIN SCH ×2 (08:40→19:53)
[2020-03-21 13:48] VITALS: BP 122/80
[2020-03-21] MEDS: DOCUSATE 100 MG CAPSULE PO SCH ×2 (16:56→19:55)
[2020-03-21 19:31] VITALS: BP 120/82
[2020-03-21] MEDS: ARIPIPRAZOLE 10 MG TABLET PO SCH (19:54)
[2020-03-21] MEDS: QUETIAPINE 200 MG TABLET PO SCH (19:54)
[2020-03-21] MEDS ORDERED: PINK LADY ENEMA 490 ML BOTTLE PR ONE (20:00)
[2020-03-22] MEDS: INSULIN LISPRO 100 UNITS/ML, PEN SQ-INSULIN SCH ×3 (00:12→11:21)
[2020-03-22 00:54] VITALS: BP 114/76
[2020-03-22] MEDS: HEPARIN 5,000 UNITS/ML, 1ML SQ SCH ×2 (04:30→13:14)
[2020-03-22 05:44] LABS: BASOPHILS % (AUTO) 1 % (0-1); EOSINOPHILS % (AUTO) 3 % (1-7); LYMPHOCYTES % (AUTO) 41 % (22-44); MEAN CORPUSCULAR HEMOGLOBIN 31.4 pg (27.5-34.5); MEAN CORPUSCULAR HGB CONC 34.5 g/dL (33.2-36.2); MEAN PLATELET VOLUME 7.7 fL (7.4-10.4); MONOCYTES % (AUTO) 10 % (2-9); NEUTROPHILS % (AUTO) 46 % (42-75); PLATELET COUNT 271 x10^3/uL (130-400); RED BLOOD COUNT 4.28 x10^6/uL (4.38-5.82); RED CELL DISTRIBUTION WIDTH 12.8 % (9.4-14.8)
[2020-03-22 06:04] LABS: ALBUMIN 2.5 g/dL (3.4-5.0); ANION GAP 4 mmol/L (5-15); CALCIUM 8.8 mg/dL (8.5-10.1); CHLORIDE 110 mmol/L (98-107)
[2020-03-22 06:06] LABS: ALANINE AMINOTRANSFERASE 32 U/L (12-78); ALKALINE PHOSPHATASE 69 U/L (45-117); BILIRUBIN,TOTAL 0.4 mg/dL (0.2-1.0); CREATININE 0.73 mg/dL (0.7-1.3); MD NO; TOTAL PROTEIN 5.8 g/dL (6.4-8.2)
[2020-03-22] MEDS: GABAPENTIN 300 MG CAPSULE PO SCH ×2 (08:08→11:20)
[2020-03-22] MEDS: INSULIN GLARGINE 100 UNITS/ML, PEN SQ-INSULIN SCH (08:08)
[2020-03-22] MEDS: BUSPIRONE 5 MG TABLET PO SCH (08:08)
[2020-03-22] MEDS: DOCUSATE 100 MG CAPSULE PO SCH (08:08)
[2020-03-22] MEDS: NICOTINE 14MG/24 HR PATCH.TD24 TD SCH (08:08)
[2020-03-22 09:00] VITALS: BP 121/78
[2020-03-22 13:36] VITALS: BP 114/74
[2020-03-22] MEDS ORDERED: INSU100C SQ-INSULIN (13:47)
[2020-03-22] MEDS ORDERED: INSU100V8 SQ (13:47)
[2020-03-22] MEDS ORDERED: DOCU100C33 PO (13:47)
== END 2020-03-22 15:50 | disposition home or self-care (01) | DRG 637 ==
LOC: ED 20:21 → EDIP 22:21 → 4NE 03-20 22:53
PROVIDERS: ADMIT Family Medicine; ATTEND Hospitalist
DX: E10.65 Type 1 diabetes mellitus with hyperglycemia (principal); N17.0 Acute kidney failure with tubular necrosis; E87.1 Hypo-osmolality and hyponatremia; E86.0 Dehydration; F17.200 Nicotine dependence, unspecified, uncomplicated; F20.9 Schizophrenia, unspecified; K59.00 Constipation, unspecified; R56.9 Unspecified convulsions; Z79.4 Long term (current) use of insulin; Z59.0 Homelessness; Z88.0 Allergy status to penicillin
CPT/HCPCS: 36415; 70450; 71045; 74018; 74177; 80048; 80053; 80307; 81003; 82010; 82803; 82947; 82962; 83690; 83735; 84100; 85025; 93005; G0378; J1644; J3411; Q9967; J1815; J7030

== ENCOUNTER 2020-04-23 14:21 | Emergency (ER) | payer MEDICAID ==
[~2020-04-23] VITALS: Ht 182.9 cm; Wt 71.8 kg
[~2020-04-23 14:21] MED LIST changes: +DOCU100C33 PO
[2020-04-23] MEDS ORDERED: SODIUM CHLORIDE 0.9% 1,000ML IVBOLUS ONE (15:00)
[2020-04-23] MEDS ORDERED: SODIUM CHLORIDE FLUSH 10ML SYR IVF ONE (15:00)
[2020-04-23 15:27] LABS: BASOPHILS % (AUTO) 0 % (0-1); EOSINOPHILS % (AUTO) 1 % (1-7); LYMPHOCYTES % (AUTO) 7 % (22-44); MEAN CORPUSCULAR HEMOGLOBIN 31.5 pg (27.5-34.5); MEAN CORPUSCULAR HGB CONC 34.9 g/dL (33.2-36.2); MEAN PLATELET VOLUME 8.4 fL (7.4-10.4); MONOCYTES % (AUTO) 5 % (2-9); NEUTROPHILS % (AUTO) 87 % (42-75); PLATELET COUNT 156 x10^3/uL (130-400); RED BLOOD COUNT 4.96 x10^6/uL (4.38-5.82); RED CELL DISTRIBUTION WIDTH 13.3 % (9.4-14.8)
[2020-04-23 15:37] LABS: ALBUMIN 2.9 g/dL (3.4-5.0); ANION GAP 6 mmol/L (5-15); CHLORIDE 104 mmol/L (98-107)
[2020-04-23 15:40] LABS: ALANINE AMINOTRANSFERASE 253 U/L (12-78); ALKALINE PHOSPHATASE 168 U/L (45-117); BILIRUBIN,TOTAL 1.1 mg/dL (0.2-1.0); CALCIUM 8.8 mg/dL (8.5-10.1); CREATININE 1.19 mg/dL (0.7-1.3); TOTAL PROTEIN 7.2 g/dL (6.4-8.2)
[2020-04-23 15:45] LABS: MD NO
[2020-04-23] MEDS ORDERED: ONDANSETRON 2MG/ML, 2ML ONE (17:11)
[2020-04-23] MEDS ORDERED: KETOROLAC 30 MG/1 ML ONE (17:13)
[2020-04-23] MEDS ORDERED: ONDANSETRON 2MG/ML, 2ML IVPush ONE (17:30)
[2020-04-23] MEDS ORDERED: KETOROLAC 30 MG/1 ML IVPush ONE (17:30)
--- NOTE | 2020-04-23 18:04 | NUR ---
pt states he is feeling better.
--- NOTE | 2020-04-23 18:50 | NUR ---
bedside report from Xin RN, pt care transferred at this time. pt nad, laying on gurney, requesting food at this time, pt chart up for recheck. mark
[2020-04-23 20:15] VITALS: BP 97/54
--- NOTE | 2020-04-23 20:15 | NUR ---
TASK RN: PT REPORTS "FEELING BETTER", REQUESTING FOOD/PO FLUIDS. DC EDUCATION PROVIDED, PT DEMONSTRATES UNDERSTANDING. PT AMBULATED STEADILY TO DC WITH RN. PROVIDED TAXI VOUCHER FOR SAFE TRANSPORT.
== END 2020-04-23 20:37 | disposition home or self-care (01) ==
LOC: ED 17:33
DX: R11.2 Nausea with vomiting, unspecified (principal); R19.7 Diarrhea, unspecified; Z20.828 Contact with and (suspected) exposure to other viral communicable diseases; M79.10 Myalgia, unspecified site; R00.0 Tachycardia, unspecified; R51.9 Headache, unspecified; E11.9 Type 2 diabetes mellitus without complications; Z87.891 Personal history of nicotine dependence
CPT/HCPCS: 71045; 76700; 80053; 80074; 83690; 85025; 87635; 96361; 96374; 96375; 99285; J1885; J2405; J7030

== ENCOUNTER 2020-10-13 11:13 | Inpatient (IN) | payer MEDICAID ==
[~2020-10-13] VITALS: Ht 185.4 cm; Wt 71.3 kg
[~2020-10-13 11:13] MED LIST changes: -CYCL-259 PO; +CYCL10TA2 PO
--- NOTE | 2020-10-13 11:36 | NUR ---
BIB [facility] FOR SEIZURE AND HYPERGLYCEMIA. HX: DMI. SUPERVISOR PRINT LINE [facility]: WITNESSED SEIZURE ACTIVITY UPON ARRIVAL, PIV 18G LAC, 5MG VERSED, 500ML NS, FSBG 442, NO SEIZURE ACTIVITY AFTER VERSED. DENIES TRAUMA. PT DROWSY FROM VERSED. PT A&OX3. PT PROVIDED URINE SAMPLE UPON ARRIVAL, PT URINATE 400ML CLEAR YELLOW URINE. UA COLLECTED AND SENT TO LAB. PT CLOTHING REMOVED AND PLACED IN GOWN, WARM BLANKETS PROVIDED. EKG COMPLETED. PT CONNECTED TO ALL MONITORING, CALL LIGHT IN REACH. FALL PRECAUTIONS IN PLACE, BED IN LOWEST POSITION. IVF STARTED BY [facility] CONTINUING TO INFUSE. PER ERMD LAW, ONLY INFUSE 1L NS AT THIS TIME.
[2020-10-13 11:46] LABS: PH, VENOUS 7.272 pH (7.320-7.420)
[2020-10-13 11:46] LABS: MICROSCOPIC NOT IND
[2020-10-13 11:49] LABS: FIO2 ROOM AIR %
--- NOTE | 2020-10-13 11:53 | NUR ---
PT AWAKE AND ASKING FOR ICE, OK TO GIVE PER ERMD LAW. PT STATES HE IS USUALLY MED COMPLIANT FOR HIS DM1. PT STATES HIS SEIZURES DX A FEW MONTHS AGO, HAS NOT SEEN A NEUROLOGIST. PT URINATED AGAIN, 450ML CLEAR YELLOW URINE. 1L IVF COMPLETED.
[2020-10-13 12:00] LABS: ALANINE AMINOTRANSFERASE 54 U/L (12-78); ANION GAP 12 mmol/L (5-15); CALCIUM 8.5 mg/dL (8.5-10.1); CHLORIDE 93 mmol/L (98-107); CREATININE 1.38 mg/dL (0.7-1.3)
[2020-10-13 12:02] LABS: ALKALINE PHOSPHATASE 120 U/L (45-117); BILIRUBIN,TOTAL 0.4 mg/dL (0.2-1.0)
[2020-10-13 12:11] LABS: BASOPHILS % (AUTO) 1 % (0-1); EOSINOPHILS % (AUTO) 2 % (1-7); LYMPHOCYTES % (AUTO) 23 % (22-44); MEAN CORPUSCULAR HEMOGLOBIN 32.2 pg (27.5-34.5); MEAN CORPUSCULAR HGB CONC 34.4 g/dL (33.2-36.2); MEAN PLATELET VOLUME 8.5 fL (7.4-10.4); MONOCYTES % (AUTO) 8 % (2-9); NEUTROPHILS % (AUTO) 67 % (42-75); PLATELET COUNT 271 x10^3/uL (130-400); RED BLOOD COUNT 4.45 x10^6/uL (4.38-5.82); RED CELL DISTRIBUTION WIDTH 12.1 % (9.4-14.8)
--- NOTE | 2020-10-13 12:14 | NUR ---
SECOND LITER NS INFUSING PER EMAR. PT ALERT AND CONVERSING. PT STATES LAST USED [facility] TWO WEEKS AGO.
[2020-10-13 12:25] LABS: ACETONE, SERUM Negative (Negative)
[2020-10-13] MEDS ORDERED: POTASSIUM CHLORIDE 40 MEQ in SODIUM CHLORIDE 0.9% 1,000 ML IV ONE (12:30)
[2020-10-13] MEDS ORDERED: SODIUM CHLORIDE 0.9% 1,000ML IVBOLUS ONE (12:30)
[2020-10-13 13:15] LABS: FIO2 ROOM AIR %; PH, VENOUS 7.271 pH (7.320-7.420)
[2020-10-13 13:27] LABS: ACETONE, SERUM Negative (Negative)
--- NOTE | 2020-10-13 13:33 | NUR ---
FSBG READ HI, >600. ERMD NOTIFIED. LABS TO BE DRAWN AGAIN PT HAS HAD 2L NS INFUSED. PT RESTING COMFORTABLY ON GURNEY. NADN. RESP EVEN AND UNLABORED.
[2020-10-13 13:38] LABS: ANION GAP 10 mmol/L (5-15); CHLORIDE 95 mmol/L (98-107); CREATININE 1.27 mg/dL (0.7-1.3)
--- NOTE | 2020-10-13 14:01 | NUR ---
ALL RESULTS ARE BACK AT THIS TIME. CHART UP FOR RECHECK.
--- NOTE | 2020-10-13 14:09 | NUR ---
RECEIVED V/O FROM ERMD TO STOP IV POSTASSIUM PT IS NOT IN DKA. PT RESTING COMFORTABLY ON GURNEY WATCHING TV. RESP EVEN AND UNLABORED. NO SEIZURE ACTIVITY NOTED OR REPORTED. CALL LIGHT IN REACH.
[2020-10-13] MEDS ORDERED: BUTALB/APAP/CAFFEINE 50MG/325MG/40MG PO PRN ×2 (14:30)
[2020-10-13] MEDS ORDERED: SODIUM CHLORIDE 0.9% 1,000ML IV ONE (14:30)
[2020-10-13] MEDS ORDERED: GUAIFENESIN/DM 200-20MG, 10ML UDC PO PRN (14:30)
[2020-10-13] MEDS ORDERED: ENALAPRILAT 1.25 MG/ML, 2ML IVPush PRN (14:30)
[2020-10-13] MEDS ORDERED: ACETAMINOPHEN 325 MG TABLET PO PRN (14:30)
[2020-10-13] MEDS ORDERED: BACLOFEN 10 MG TABLET PO PRN (14:30)
[2020-10-13] MEDS ORDERED: ONDANSETRON 2MG/ML, 2ML IVPush PRN (14:30)
[2020-10-13] MEDS ORDERED: LABETALOL 5MG/ML, 20ML IVPush PRN (14:30)
[2020-10-13] MEDS ORDERED: ONDANSETRON ODT 4 MG PO PRN (14:30)
--- NOTE | 2020-10-13 14:52 | NUR ---
REPORT GIVEN TO JHON COPELAND. PT RTG TO ROOM 369
[2020-10-13 15:15] VITALS: BP 141/91
[2020-10-13 15:31] VITALS: BP 140/86
[2020-10-13] MEDS ORDERED: INSULIN REGULAR 100 UNITS/ML, 3ML VIAL SQ-INSULIN ONE (16:00)
[2020-10-13] MEDS: INSULIN LISPRO 100 UNITS/ML, PEN SQ-INSULIN SCH ×2 (16:20→20:24)
[2020-10-13] MEDS ORDERED: CYANOCOBALAMIN 1,000 MCG/ML, 1ML IM ONE (16:30)
[2020-10-13] MEDS: ASCORBIC ACID 500 MG TABLET PO SCH (16:43)
[2020-10-13 18:41] VITALS: BP 146/102
[2020-10-13 19:56] VITALS: BP 143/95
[2020-10-13] MEDS ORDERED: SODIUM CHLORIDE 0.9% 1,000 ML IV ONE (20:00)
[2020-10-13] MEDS: MELATONIN 5 MG TABLET PO SCH (20:14)
[2020-10-14 01:49] VITALS: BP 149/92
[2020-10-14] MEDS: ASPIRIN 325 MG TABLET EC PO SCH (06:08)
[2020-10-14 06:19] LABS: BASOPHILS % (AUTO) 1 % (0-1); EOSINOPHILS % (AUTO) 3 % (1-7); LYMPHOCYTES % (AUTO) 30 % (22-44); MEAN CORPUSCULAR HEMOGLOBIN 32.4 pg (27.5-34.5); MEAN PLATELET VOLUME 7.8 fL (7.4-10.4); MONOCYTES % (AUTO) 6 % (2-9); NEUTROPHILS % (AUTO) 60 % (42-75); PLATELET COUNT 278 x10^3/uL (130-400); RED BLOOD COUNT 4.37 x10^6/uL (4.38-5.82); RED CELL DISTRIBUTION WIDTH 12.6 % (9.4-14.8)
[2020-10-14 06:30] LABS: ALANINE AMINOTRANSFERASE 50 U/L (12-78); ALBUMIN 2.9 g/dL (3.4-5.0); ANION GAP 7 mmol/L (5-15); CALCIUM 8.4 mg/dL (8.5-10.1); CHLORIDE 103 mmol/L (98-107); CREATININE 0.61 mg/dL (0.7-1.3)
[2020-10-14 06:33] LABS: ALKALINE PHOSPHATASE 95 U/L (45-117); BILIRUBIN,TOTAL 0.4 mg/dL (0.2-1.0); TOTAL PROTEIN 6.6 g/dL (6.4-8.2)
[2020-10-14 06:50] VITALS: BP 136/89
[2020-10-14] MEDS: INSULIN LISPRO 100 UNITS/ML, PEN SQ-INSULIN SCH ×5 (07:00→21:19)
[2020-10-14] MEDS: MULTIVITS,STRESS FORMULA 1 TABLET PO SCH (07:46)
[2020-10-14] MEDS: CHOLECALCIFEROL 5,000u TAB PO SCH (07:46)
[2020-10-14] MEDS: SENNA/DOCUSATE TABLET PO SCH (07:47)
[2020-10-14] MEDS: ZINC SULFATE 220 MG CAPSULE PO SCH (07:47)
[2020-10-14] MEDS: ASCORBIC ACID 500 MG TABLET PO SCH ×2 (07:47→17:34)
[2020-10-14] MEDS: QUETIAPINE 200 MG TABLET PO SCH ×2 (12:33→21:18)
[2020-10-14 14:28] VITALS: BP 111/66
[2020-10-14 18:55] VITALS: BP 95/58
[2020-10-14] MEDS ORDERED: INSULIN GLARGINE 100 UNITS/ML, PEN SQ-INSULIN SCH (21:00)
[2020-10-14] MEDS: MELATONIN 5 MG TABLET PO SCH (21:00)
[2020-10-14] MEDS: RISPERIDONE 0.5 MG TABLET PO SCH (21:18)
[2020-10-15 00:35] VITALS: BP 102/68
[2020-10-15 05:47] LABS: BASOPHILS % (AUTO) 1 % (0-1); EOSINOPHILS % (AUTO) 2 % (1-7); LYMPHOCYTES % (AUTO) 40 % (22-44); MEAN CORPUSCULAR HEMOGLOBIN 32.2 pg (27.5-34.5); MEAN CORPUSCULAR HGB CONC 35.9 g/dL (33.2-36.2); MEAN PLATELET VOLUME 7.8 fL (7.4-10.4); MONOCYTES % (AUTO) 7 % (2-9); NEUTROPHILS % (AUTO) 49 % (42-75); PLATELET COUNT 294 x10^3/uL (130-400); RED BLOOD COUNT 4.69 x10^6/uL (4.38-5.82); RED CELL DISTRIBUTION WIDTH 12.8 % (9.4-14.8)
[2020-10-15 05:54] LABS: ALBUMIN 2.8 g/dL (3.4-5.0); ANION GAP 9 mmol/L (5-15); CALCIUM 8.6 mg/dL (8.5-10.1); CHLORIDE 107 mmol/L (98-107); CREATININE 0.69 mg/dL (0.7-1.3)
[2020-10-15] MEDS: ASPIRIN 325 MG TABLET EC PO SCH (06:14)
[2020-10-15 07:56] VITALS: BP 117/70
[2020-10-15] MEDS: QUETIAPINE 200 MG TABLET PO SCH (08:51)
[2020-10-15] MEDS: RISPERIDONE 0.5 MG TABLET PO SCH (08:51)
[2020-10-15] MEDS: ASCORBIC ACID 500 MG TABLET PO SCH (08:51)
[2020-10-15] MEDS: ZINC SULFATE 220 MG CAPSULE PO SCH (08:51)
[2020-10-15] MEDS: CHOLECALCIFEROL 5,000u TAB PO SCH (08:51)
[2020-10-15] MEDS: MULTIVITS,STRESS FORMULA 1 TABLET PO SCH (08:52)
[2020-10-15] MEDS: SENNA/DOCUSATE TABLET PO SCH (08:52)
[2020-10-15] MEDS ORDERED: INSULIN GLARGINE 100 UNITS/ML, PEN SQ-INSULIN SCH (09:00)
[2020-10-15] MEDS: INSULIN LISPRO 100 UNITS/ML, PEN SQ-INSULIN SCH ×2 (09:01→11:45)
[2020-10-15] MEDS ORDERED: INSU100C SQ-INSULIN (12:25)
[2020-10-15] MEDS ORDERED: INSU100V8 SQ (12:25)
[2020-10-15 13:45] VITALS: BP 112/79
== END 2020-10-15 14:19 | disposition home or self-care (01) | DRG 101 ==
LOC: ED 13:19 → EDIP 14:16 → 3N 15:03 → DCLOUNGE 10-15 14:17
PROVIDERS: ADMIT Hospitalist; ATTEND Hospitalist
DX: R56.9 Unspecified convulsions (principal); E87.1 Hypo-osmolality and hyponatremia; E10.65 Type 1 diabetes mellitus with hyperglycemia; E55.9 Vitamin D deficiency, unspecified; E86.0 Dehydration; F15.10 Other stimulant abuse, uncomplicated; F20.9 Schizophrenia, unspecified; I10 Essential (primary) hypertension; Z59.0 Homelessness; Z79.4 Long term (current) use of insulin; Z91.19 Patient's noncompliance with other medical treatment and regimen; Z79.899 Other long term (current) drug therapy; Z79.891 Long term (current) use of opiate analgesic; Z88.0 Allergy status to penicillin; Z88.1 Allergy status to other antibiotic agents; Z83.3 Family history of diabetes mellitus
CPT/HCPCS: 36415; 80048; 80053; 80069; 81003; 82010; 82306; 82607; 82803; 82962; 83036; 83735; 85025; 93005; 96360; 96361; G0378; J1815; J3480; J3420; J7030

== ENCOUNTER 2021-01-21 11:11 | Emergency (ER) | payer MEDICAID ==
[~2021-01-21] VITALS: Ht 182.9 cm; Wt 63.6 kg
[~2021-01-21 11:11] MED LIST changes: +FLUO20CA23 PO; +HYDR50CA PO; +INSU100I11 SQ-INSULIN; +INSU100I13 SQ-INSULIN; +LITH150C PO; +OLAN10TA69 PO; -QUET200T PO; +QUET200T2 PO
--- NOTE | 2021-01-21 12:12 | NUR ---
[facility] PROGRAM COORDINATOR: PT TO ROOM FROM LEFTY [place]
[2021-01-21] MEDS ORDERED: LIDOCAINE-MPF 1%, 5ML INFIL ONE (13:00)
[2021-01-21] MEDS ORDERED: SODIUM CHLORIDE FLUSH 10ML SYR IVF ONE (13:00)
[2021-01-21] MEDS ORDERED: SODIUM CHLORIDE 0.9% 1,000ML IVBOLUS ONE (13:00)
--- NOTE | 2021-01-21 13:48 | NUR ---
PT UP TO RESTROOM FOR UA.
[2021-01-21 13:51] LABS: BASOPHILS % (AUTO) 0 % (0-1); EOSINOPHILS % (AUTO) 0 % (1-7); LYMPHOCYTES % (AUTO) 5 % (22-44); MEAN CORPUSCULAR HEMOGLOBIN 31.4 pg (27.5-34.5); MEAN CORPUSCULAR HGB CONC 35.5 g/dL (33.2-36.2); MEAN PLATELET VOLUME 8.2 fL (7.4-10.4); MONOCYTES % (AUTO) 8 % (2-9); NEUTROPHILS % (AUTO) 88 % (42-75); PLATELET COUNT 302 x10^3/uL (130-400); RED CELL DISTRIBUTION WIDTH 12.2 % (9.4-14.8)
[2021-01-21 13:53] LABS: ALANINE AMINOTRANSFERASE 28 U/L (12-78); ALBUMIN 2.9 g/dL (3.4-5.0); ANION GAP 19 mmol/L (5-15); CALCIUM 9.3 mg/dL (8.5-10.1); CHLORIDE 92 mmol/L (98-107); CREATININE 0.76 mg/dL (0.7-1.3)
[2021-01-21 13:56] LABS: ALKALINE PHOSPHATASE 117 U/L (45-117); BILIRUBIN,TOTAL 0.9 mg/dL (0.2-1.0)
[2021-01-21 14:12] LABS: ACETONE, SERUM Large (80mg/dL) (Negative)
[2021-01-21 14:14] LABS: MICROSCOPIC NOT IND
[2021-01-21] MEDS ORDERED: LIDOCAINE-MPF 1%, 5ML ONE (14:27)
[2021-01-21] MEDS ORDERED: INSULIN SINGLE DOSE, ER ONE (14:28)
--- NOTE | 2021-01-21 15:12 | NUR ---
ER PROVIDER AT BEDSIDE FOR I&D
[2021-01-21] MEDS ORDERED: INSULIN REGULAR 100 UNITS/ML, 3ML VIAL SQ-INSULIN SCH (16:00)
[2021-01-21 16:40] VITALS: BP 145/97
--- NOTE | 2021-01-21 16:47 | NUR ---
Upon reviewing d/c instructions, pt began yelling at RN "you're not giving me any pain meds! I'm going to steal some tylenol." RN offered to talk to MD regarding pain management, pt refused.
== END 2021-01-21 16:49 | disposition home or self-care (01) ==
LOC: ED 15:04
DX: L02.414 Cutaneous abscess of left upper limb (principal); E11.65 Type 2 diabetes mellitus with hyperglycemia; Z87.891 Personal history of nicotine dependence
CPT/HCPCS: 10060; 36415; 76881; 80053; 81003; 82010; 82800; 82962; 85025; 96360; 99284; J1815; J7030